=== PATIENT | male | born 1940 | race Caucasian/White ===

== ENCOUNTER → 2022-06-30 | Outpatient (REF) | payer MEDICARE, OTHER ==
[~2022-06-30] MED LIST: ASPI81TA83; DARV100T10; FOLI400T; GLUC500T3; HYDR25TA6; LISI20TA5; LISI5TAB; MELOPOW; MULTIVIT; NIAC10TA; OMEGA; POTA99TA; PRAV80TA; SKEL800T5; VITA400C; VITA500T; VITAMIN B COMPLE1; hydrcodone; lecithin; zinc
== END ==
LOC: M SFHCDERM 13:52
PROVIDERS: ATTEND Nurse Practitioner Family
DX: C44.229 Squamous cell carcinoma of skin of left ear and external auricular canal (principal); L00-L99 Diseases of the skin and subcutaneous tissue

== ENCOUNTER → 2022-11-03 | Outpatient (REF) | payer MEDICARE, OTHER | LOC: M SFHCDERM 16:27 | PROVIDERS: ATTEND Nurse Practitioner Family | DX: L82.0 Inflamed seborrheic keratosis (principal) ==

== ENCOUNTER → 2024-12-27 | Outpatient (REF) | payer MEDICARE, OTHER | LOC: M SFHCDERM 12:56 | PROVIDERS: ATTEND Physician Assistant | DX: L30.4 Erythema intertrigo (principal) ==